=== PATIENT | female | born 1965 | race Caucasian/White ===

== ENCOUNTER 2018-04-01 12:31 | Emergency (ER) | payer OTHER ==
[~2018-04-01] VITALS: Ht 149.9 cm; Wt 86.5 kg
[2018-04-01 15:39] VITALS: BP 151/91
== END 2018-04-01 15:52 | disposition home or self-care (01) ==
LOC: EME 12:31
DX: G43.909 Migraine, unspecified, not intractable, without status migrainosus (principal); I10 Essential (primary) hypertension; J45.909 Unspecified asthma, uncomplicated; Z86.73 Personal history of transient ischemic attack (TIA), and cerebral infarction without residual deficits
CPT/HCPCS: 93005; 99281; 99285; J0780; J1200; J1885; J7030